=== PATIENT | male | born 1970 | race African-American/Black ===

== ENCOUNTER 2024-09-15 07:21 | Emergency (ER) | payer OTHER, SELFPAY ==
--- OUTSIDE RECORDS SUMMARY | 2024-09-15 07:23 | XMS_ITS | Clinical Summary ---
Author Organization [place] Address [address] [facility] [place] [address] [address] Team Providers Care Road Crew Member Name Role Phone No Ref-Primary, Physician Primary Care Provider Allergies No known active allergies Medications MOTRIN IB PO Active HYDROcodone-germaine taminophen (NORCO) 5-325 MG per tablet Take 1-2 tablets by mouth every 4 hours as needed for moderate to severe pain 15 tablet 0 03/30/2016 Active indomethacin (INDOCIN) 50 MG capsule Take 1 capsule (50 mg) by mouth 3 times daily as needed for moderate pain 15 capsule 07/27/2023 Active Immunizations Name Administration Dates Next Due TDAP Vaccine (Adacel) 12/11/2013 Social History Tobacco Use Types Packs/Day Years Used Date Smoking Tobacco: Never Alcohol Use Standard Drinks/Week Comments Yes 0 (1 standard drink = 0.6 oz pur e alcohol) 4-5 days per week 3-4 [facility] Adolescent Education Answer Date Record ed Getting School Help Needed Not on file 07/27 Sex and Gender Information Value Date Recorded Sex Assigned at Not on file Legal Sex Male 3:41 AM SVP OF DIGITAL Gender Identity Not on file Sexual Orientation Not on file Last Filed Vital Signs Vital Sign Reading Time Taken Comments Blood Pressure 148/106 07/27/2023 6:51 PM SVP OF DIGITAL Pulse 96 07/27/2023 6:51 PM SVP OF DIGITAL Temperature 37.7 C (99.9 F) 07/27/2023 4:59 PM SVP OF DIGITAL Respiratory Rate 16 07/27/2023 6:51 PM SVP OF DIGITAL Oxygen Saturation 98% 07/27/2023 6:51 PM SVP OF DIGITAL Inhaled Oxygen Concentration - - Weight 88.6 kg (195 lb 5.2 oz) 07/27/2023 4:59 P M SVP OF DIGITAL Height - - Body Mass Index - - Plan of Treatment Health Maintenance Due Date Last Done Comments ADVANCE CARE PLANNING 1970 ANNUAL REVIEW OF HM ORDERS 1969 CT COLONOGRAPHY 1969 FIT 1969 FLEX SIG 1969 sDNA (Cologuard) 1969 YEARLY PREVENTIVE VISIT 1972 COLONOSCOPY 1979 COLORECTAL CANCER SCREENING 1979 HIV SCREENING 1984 HEPATITIS C SCREENING 1987 HEPATITIS B IMMUNIZATION (1 of 3 - 19+ 3-dose series) 1988 LIPID 2009 Pneumococcal Vaccine: 50+ Years (1 of 1 - PCV) 2019 ZOSTER IMMUNIZATION (1 of 2) 2019 GLUCOSE 03/30/2019 03/30/2016 DTAP/TDAP/TD IMMUNIZATION (3 - Td or Tdap) 12/12/2023 12/11/2013, 05/07/2007 COVID-19 Vaccine (1 - 2023-2 5 season) 2024 INFLUENZA VACCINE (#1) 2024 PHQ-2 (once per calendar year) 2024 RSV VACCINE (1 - 1-dose 75+ series) 2044 HPV IMMUNIZATION Aged Out No longer e ligible based on patient's age to complete this topic MENINGITIS IMMUNIZATION Aged Out No l onger eligible based on patient's age to complete this topic RSV MONOCLONAL ANTIBODY Aged Out No l onger eligible based on patient's age to complete this topic Procedures Procedure Name Priority Date/Time Associated Diagnosis Comments COMPREHENSIVE METABOLIC PANEL STAT 03/30/2016 11:45 AM CDT from Last 3 Months or Most Recently Relevant to Health Maintenance Results * (ABNORMAL) Comprehensive metabolic panel (03/30/2016 11:45 AM CDT) Sodium 138 133 - 144 mmol/L [facility] Potassium 3.6 3.4 - 5.3 mmol/L [facility] Chloride 101 94 - 109 mmol/L [facility] Carbon Dioxide 30 20 - 32 mmol/L [facility] Anion Gap 7 3 - 14 mmol/L [facility] Glucose 98 70 - 99 mg/dL [facility] Urea Nitrogen 4(L) 7 - 30 mg/dL [facility] Creatinine 0.93 0.66 - 1.25 mg/dL [facility] GFR Estimate 87 >60 mL/min/1. 7m2 [facility] Comment:Non GFR Calc GFR Estimate If Black >90 GFR Calc >60 mL/min/1. 7m2 [facility] Calcium 8.9 8.5 - 10.1 mg/dL [facility] Bilirubin Total 0.9 0.2 - 1.3 mg/dL [facility] Albumin 4.0 3.4 - 5.0 g/dL [facility] Protein Total 7.5 6.8 - 8.8 g/dL [facility] Alkaline Phosphatase 55 40 - 150 U/L [facility] ALT 63 0 - 70 U/L [facility] AST 21 0 - 45 U/L [facility] Blood specimen (specimen) 03/30/2016 11:45 AM CDT 03/30/2016 12:17 PM CDT Mena Bauer PA-C LAB - BLOOD ORDERAB LES Final Result [facility] [address] [place] [address], [facility] [phone] from Last 3 Months or Most Recently Relevant to Health Maintenance Care Teams Road Crew Member Relationship Specialty Start Date End Date No Ref-Primary, Physician PCP - General 12/11/13
--- OUTSIDE RECORDS SUMMARY | 2024-09-15 07:23 | XMS_ITS | Referral Summary ---
Author Organization [place] Address [address] [place] [address] Care Team Providers Care Manufacturing Recruiter Name Role Phone No Ref-Primary, Physician Primary [...] e alcohol) 4-5 days per week 3-4 [facility] Adolescent Education Answer Date Record ed Getting School Help Needed Not on file 07/27 Sex and Gender Information Value Date Recorded Sex Assigned at Not on file Legal Sex Male 3:41 AM MANAGEMENT PSYCHOLOGIST Gender Identity Not on file Sexual Orientation Not on file Last Filed Vital Signs Vital Sign Reading Time Taken Comments Blood Pressure 148/106 07/27/2023 6:51 PM MANAGEMENT PSYCHOLOGIST Pulse 96 07/27/2023 6:51 PM MANAGEMENT PSYCHOLOGIST Temperature 37.7 C (99.9 F) 07/27/2023 4:59 PM MANAGEMENT PSYCHOLOGIST Respiratory Rate 16 07/27/2023 6:51 PM MANAGEMENT PSYCHOLOGIST Oxygen Saturation 98% 07/27/2023 6:51 PM MANAGEMENT PSYCHOLOGIST Inhaled Oxygen Concentration - - Weight 88.6 kg (195 lb 5.2 oz) 07/27/2023 4:59 P M MANAGEMENT PSYCHOLOGIST Height - - Body Mass Index - - Plan of Treatment Not on file Procedures Procedure Name Priority Date/Time Associated Diagnosis Comments COMPREHENSIVE METABOLIC PANEL STAT 03/30/2016 11:45 AM CDT from Last 3 Months or Most Recently Relevant to Health Maintenance Results * (ABNORMAL) Comprehensive metabolic panel (03/30/2016 11:45 AM CDT) Sodium 138 133 - 144 mmol/L [facility] Potassium 3.6 3.4 - 5.3 mmol/L [facility] Chloride 101 94 - 109 mmol/L [facility] Carbon Dioxide 30 20 - 32 mmol/L [facility] Anion Gap 7 3 - 14 mmol/L [facility] Glucose 98 70 - 99 mg/dL [facility] Urea Nitrogen 4(L) 7 - 30 mg/dL [facility] Creatinine 0.93 0.66 - 1.25 mg/dL [facility] GFR Estimate 87 >60 mL/min/1. 7m2 [facility] Comment:Non GFR Calc GFR Estimate If Black >90 GFR Calc >60 mL/min/1. 7m2 [facility] Calcium 8.9 8.5 - 10.1 mg/dL [facility] Bilirubin Total 0.9 0.2 - 1.3 mg/dL [facility] Albumin 4.0 3.4 - 5.0 g/dL [facility] Protein Total 7.5 6.8 - 8.8 g/dL [facility] Alkaline Phosphatase 55 40 - 150 U/L [facility] ALT 63 0 - 70 U/L [facility] AST 21 0 - 45 U/L [facility] Blood specimen (specimen) 03/30/2016 11:45 AM CDT 03/30/2016 12:17 PM CDT Mena Bauer PA-C LAB - BLOOD ORDERAB LES Final Result [facility] [address] [place] [address], [facility] [phone] from Last 3 Months or Most Recently Relevant to Health Maintenance Care Teams Manufacturing Recruiter Relationship Specialty Start Date End Date No Ref-Primary, Physician PCP - General 12/11/13
[2024-09-15 07:30] VITALS: BP 161/109; PULSE 104; RESP 20; TEMP 37.6; O2SAT 95; BMI 24.8
--- NOTE | 2024-09-15 08:07 | CRLHL7_ITS ---
For Patients: As a result of the Century Cures Act, medical imaging exams and procedure reports are released immediately into your electronic medical record. You may view this report before your referring provider. If you have questions, please contact your health care provider. INDICATION: Fever. Weakness. Cough. COVID. COMPARISON: None TECHNIQUE: PA and lateral views of the chest were acquired FINDINGS: TUBES AND LINES: None. HEART AND MEDIASTINUM: The heart size is normal. The mediastinal contour appears normal for patient age. LUNGS AND PLEURAL SPACES: Patchy airspace opacities on the right, likely inflammatory.The pleural spaces are unremarkable. OSSEOUS STRUCTURES: Age-appropriate appearance. No acute focal finding. IMPRESSION: Patchy airspace opacities on the right, likely inflammatory. No maryjane consolidation. Normal pleural spaces. Dictated by Timothy Kasper MD @ 09/15/2024 8:38:34 AM (Electronically Signed)
--- NOTE | 2024-09-15 08:09 | ED_ITS ---
HPI - General Adult General Date Seen: 09/15/24 Chief complaint: Weakness Stated complaint: tested positive for covid Time Seen by Provider: 09/15/24 08:02 History of Present Illness HPI narrative: Patient is a 54-year-old male, generally healthy, who has been sick for couple of days with headache, body aches, cough, fatigue and weakness. He did home COVID test which he says was positive on the 30, 2 days ago. He denies chest pain or shortness of breath, he has had some nausea but no vomiting. No diarrhea. He has not had any head appetite but has been trying to keep up with fluids. He feels like he is just peeing out everything he drinks in. He has had fevers up to 104 at home. He denies significant medical history. He does not smoke or drink excessively. Related Data Home Medications ?Medication ?Instructions ?Recorded ?Confirmed No Known Home Medications 09/15/24 09/15/24 Allergies Allergy/AdvReac Type Severity Reaction Status Date / Time No Known Drug Allergies Allergy Verified 09/15/24 07:29 Review of Systems Status of ROS: Reports: 10 or more systems reviewed and unremarkable except as noted in History and below [facility] Social History Smoking Status: Never smoker Do you use any of these nicotine containing products: None Second hand tobacco smoke exposure: Yes How often do you have a drink containing alcohol: never How often do you have six or more drinks on one occasion: Never AUDIT-C Alcohol total score: 0 Non-prescribed substance use: denies use service: No Exam Narrative: Exam Narrative: Vital signs reviewed In general, alert, nontoxic Head: Normocephalic, atraumatic. Eyes: Sclera clear. Pupils equal and reactive. ENT: Mucous membranes moist. Neck: Supple without adenopathy. Heart: Regular rate and rhythm without murmur. Lungs: Clear. No increased work of breathing, crackles or wheezes. Abdomen: Soft, nontender to palpation. Extremities: Well perfused, pulses intact. No significant edema. Neurologic: Alert, conversant. Speech fluent, face symmetric. Moves all extremities equally. Skin: Warm, dry well perfused. Affect: Normal. Const: Vital Signs, click to edit/add: Vital Signs - 24 hr 09/15/24 07:30 09/15/24 08:14 09/15/24 08:15 Temperature 99.6 F Pulse Rate 103 H 103 H Pulse Rate [Pulse Oximeter] 104 H Respiratory Rate 20 Blood Pressure Blood Pressure [Ri ght Upper Arm] 161/109 H Pulse Oximetry 95 96 93 Oxygen Delivery Me thod Room Air 09/15/24 08:33 09/15/24 08:35 Temperature 99.7 F H Pulse Rate 104 H Pulse Rate [Pulse Oximeter] Respiratory Rate Blood Pressure 144/92 H Blood Pressure [Ri ght Upper Arm] Pulse Oximetry 97 Oxygen Delivery Me thod Course Course ED Course: Symptoms are likely viral but will do some basic labs to rule out significant dehydration metabolic derangement evidence of more serious bacterial infection, chest x-ray to rule out pneumonia. I am going to do a viral swab as well to see whether he might have COVID and influenza given how poorly he feels. Will hydrate with normal saline, Toradol, Zofran for symptomatic relief. Evaluation here is notable for positive influenza a, COVID is actually negative here. His white blood cell count is mildly elevated at 12.2, labs are otherwise unremarkable. Lactate is 1.6. Chest x-ray by my review showed some haziness in the right lung, radiology really reads this as patchy airspace opacity likely inflammatory. A not entirely sure how to interpret that but to me it looks like it could be developing pneumonia so will treat with antibiotics for that. He is feeling significantly improved after therapy here. Diagnosis discussed. Expectant course discussed. He should be seen if not starting to improve by day 10, return at any time for worsening. Vital Signs Vital signs: Initial Vital Signs Temperature 99.6 F 09/15/24 07:30 Temperature Source Temporal Artery Scan 09/15/24 07:30 Pulse Rate 104 H 09/15/24 07:30 Pulse Rhythm Regular 09/15/24 07:30 Respiratory Rate 20 09/15/24 07:30 Blood Pressure 161/109 H 09/15/24 07:30 Blood Pressure Mean 126 H 09/15/24 07:30 Blood Pressure Position Semi-Fowlers 09/15/24 07:30 Pulse Oximetry 95 09/15/24 07:30 Oxygen Delivery Method Room Air 09/15/24 07:30 Vital Signs Temperature 99.6 F 09/15/24 07:30 Pulse Rate 104 H 09/15/24 07:30 Respiratory Rate 20 09/15/24 07:30 Blood Pressure 161/109 H 09/15/24 07:30 Pulse Oximetry 95 09/15/24 07:30 Oxygen Delivery Method Room Air 09/15/24 07:30 Temperature 99.7 F H 09/15/24 08:35 Pulse Rate 104 H 09/15/24 08:35 Respiratory Rate 20 09/15/24 07:30 Blood Pressure 144/92 H 09/15/24 08:33 Pulse Oximetry 97 09/15/24 08:35 Oxygen Delivery Method Room Air 09/15/24 07:30 Medications Administered Medications: Discontinued Medications Generic Name Dose Route Start Last Admin Trade Name Freq PRN Reason Stop Dose Admin Sodium Chloride 1,000 mls @ 1,000 mls/hr 09/15/24 08:15 09/15/24 09:42 0.9 % Sodium Chloride 1000 Ml IV 09/15/24 09:14 Infused .Q1H PAULA Infusion Ketorolac Tromethamine 15 mg 09/15/24 08:06 09/15/24 08:37 Ketorolac 15 Mg/Ml Inj IVP 09/15/24 08:07 15 mg ONCE ONE Administration Ondansetron HCl 4 mg 09/15/24 08:06 09/15/24 08:37 Ondansetron 2 Mg/Ml Inj IVP 09/15/24 08:07 4 mg ONCE ONE Administration Medical Decision Making Lab Data Lab results reviewed: Yes I reviewed the patient's lab results Labs: Lab Results 09/15/24 Range/Units 08:20 WBC 12.25 H (4.50-11.00) K/uL RBC 5.63 (4.30-5.90) m/uL Hgb 16.3 (13.5-17.5) gm/dL Hct 50.0 (37.0-53.0) % MCV 89 (80-100) fL MCH 29 (26-34) pg MCHC 33 (32-36) gm/dL RDW Coeff of Emmanuel 12.1 (11.5-15.5) % Plt Count 210 (140-440) K/uL Neut % (Auto) 82.7 H (42.0-72.0) % Lymph % (Auto) 8.1 L (20-44) % Kemper % (Auto) 8.9 (0.0-11.0) % Eos % (Auto) 0.0 (0.0-7.0) % Baso % (Auto) 0.1 (0.0-3.0) % Neut # (Auto) 10.10 H (1.7-7.0) K/uL Lymph # (Auto) 1.00 (0.90-2.90) K/uL Kemper # (Auto) 1.10 H (0.00-0.90) K/UL Eos # (Auto) 0.00 (0.00-0.50) K/uL Baso # (Auto) 0.00 (0.00-0.30) K/uL Abs Immat Gran (auto) 0.00 (0.00-0.30) K/uL Imm/Tot Granulo (auto) 0.2 % Sodium 133 L (135-149) mmol/L Potassium 4.3 (3.6-5.1) mmol/L Chloride 95 L (96-114) mmol/L Carbon Dioxide 28 (20-32) mmol/L Anion Gap 10 (7-15) mEq/L BUN 18 (7-30) mg/dL Creatinine 1.0 (0.5-1.5) mg/dL Estimated Creat Clear 88.90 Estimated GFR 89 ml/min Glucose 102 (60-115) mg/dL Lactate 1.6 (0.5-1.9) mmol/L Calcium 8.7 (8.4-10.6) mg/dL SARS-CoV-2 (PCR) Negative SARS-CoV-2 (Negative) Influenza Type A (PCR) POSITIVE PCR FLU A A (Negative) Influenza Type B (PCR) Negative PCR FLU B (Negative) RSV (PCR) Negative PCR RSV (Negative) Imaging Data Chest x-ray: Attestation: I have reviewed the pertinent imaging results. Radiologist's impression: Patient: ARGELIA KARIMI Facility: [facility] Site . Site : 1970 Study: XRay-Chest PORTABLE-09/15/2024 8:34:35 AM Ordering Physician: Tad Sanches Final Report: INDICATION: Fever. Weakness. Cough. COVID. COMPARISON: None TECHNIQUE: PA and lateral views of the chest were acquired FINDINGS: TUBES AND LINES: None. HEART AND MEDIASTINUM: The heart size is normal. The mediastinal contour appears normal for patient age. LUNGS AND PLEURAL SPACES: Patchy airspace opacities on the right, likely inflammatory.The pleural spaces are unremarkable. OSSEOUS STRUCTURES: Age-appropriate appearance. No acute focal finding. IMPRESSION: Patchy airspace opacities on the right, likely inflammatory. No maryjane consolidation. Normal pleural spaces. Dictated by Timothy Kasper MD @ 09/15/2024 8:38:34 AM Discharge Plan Discharge Clinical Impression: Influenza A, Pneumonia Patient Disposition: Home, Self-Care Condition: Improved Instructions: Influenza (ED), Community Acquired Pneumonia (ED) Additional Instructions: Ibuprofen 400 mg plus or minus Tylenol 1000 mg 3 times daily with food. Keep up with hydration. Take antibiotics as prescribed for developing pneumonia. Return at any time for severe symptoms, significant shortness of breath, uncontrolled vomiting, or other worsening. If you are not improving by day 10, you should be seen again. Prescriptions: No Action No Known Home Medications Follow Up/Referrals: Provider,Not a Local [Primary Care Provider] - Stand Alone Forms: [employer] Info Instructions
[2024-09-15 08:14] VITALS: PULSE 103; O2SAT 96
[2024-09-15 08:15] VITALS: PULSE 103; O2SAT 93
[2024-09-15 08:33] VITALS: BP 144/92
[2024-09-15 08:35] VITALS: PULSE 104; TEMP 37.6; O2SAT 97
[2024-09-15] MEDS: 0.9 % SODIUM CHLORIDE 1000 ml 1,000 ML IV (08:37)
[2024-09-15] MEDS: ONDANSETRON 2 MG/ML inj 4 MG IVP (08:37)
[2024-09-15] MEDS: KETOROLAC 15 MG/ML inj IVP (08:37)
[2024-09-15 08:48] LABS: Basophils Percent Auto 0.1 % (0.0-3.0); Hemoglobin* 16.3 gm/dL (13.5-17.5); Immature Granulocytes Pct Auto 0.2 %; Lymphocytes Percent Auto 8.1 % (20-44); Mean Corpuscular HGB Conc 33 gm/dL (32-36); Mean Corpuscular Hemoglobin 29 pg (26-34); Mean Corpuscular Volume 89 fL (80-100); Monocytes Percent Auto 8.9 % (0.0-11.0); Neutrophils Percent Auto 82.7 % (42.0-72.0); Platelet Count* 210 K/uL (140-440); RDW Coefficient of Variation % 12.1 % (11.5-15.5); Red Blood Count 5.63 m/uL (4.30-5.90); White Blood Count* 12.25 K/uL (4.50-11.00)
[2024-09-15 08:50] LABS: Lactate Sepsis w/Reflex* 1.6 mmol/L (0.5-1.9)
[2024-09-15 08:51] LABS: Slide Review Reflex No
--- OUTSIDE RECORDS SUMMARY | 2024-09-15 08:52 | XMS_ITS | Clinical Summary ---
Author Organization [place] Address [address] [place] [address] Care Team Providers Care Outside Plant Engineer Name Role Phone No Ref-Primary, Physician Primary [...] e alcohol) 4-5 days per week 3-4 [facility] Adolescent Education Answer Date Record ed Getting School Help Needed Not on file 07/27 Sex and Gender Information Value Date Recorded Sex Assigned at Not on file Legal Sex Male 3:41 AM AIRPORT ENGINEER Gender Identity Not on file Sexual Orientation Not on file Last Filed Vital Signs Vital Sign Reading Time Taken Comments Blood Pressure 148/106 07/27/2023 6:51 PM AIRPORT ENGINEER Pulse 96 07/27/2023 6:51 PM AIRPORT ENGINEER Temperature 37.7 C (99.9 F) 07/27/2023 4:59 PM AIRPORT ENGINEER Respiratory Rate 16 07/27/2023 6:51 PM AIRPORT ENGINEER Oxygen Saturation 98% 07/27/2023 6:51 PM AIRPORT ENGINEER Inhaled Oxygen Concentration - - Weight 88.6 kg (195 lb 5.2 oz) 07/27/2023 4:59 P M AIRPORT ENGINEER Height - - Body Mass Index - [...] CDT) Sodium 138 133 - 144 mmol/L [facility] Potassium 3.6 3.4 - 5.3 mmol/L [facility] Chloride 101 94 - 109 mmol/L [facility] Carbon Dioxide 30 20 - 32 mmol/L [facility] Anion Gap 7 3 - 14 mmol/L [facility] Glucose 98 70 - 99 mg/dL [facility] Urea Nitrogen 4(L) 7 - 30 mg/dL [facility] Creatinine 0.93 0.66 - 1.25 mg/dL [facility] GFR Estimate 87 >60 mL/min/1. 7m2 [facility] Comment:Non GFR Calc GFR Estimate If Black >90 GFR Calc >60 mL/min/1. 7m2 [facility] Calcium 8.9 8.5 - 10.1 mg/dL [facility] Bilirubin Total 0.9 0.2 - 1.3 mg/dL [facility] Albumin 4.0 3.4 - 5.0 g/dL [facility] Protein Total 7.5 6.8 - 8.8 g/dL [facility] Alkaline Phosphatase 55 40 - 150 U/L [facility] ALT 63 0 - 70 U/L [facility] AST 21 0 - 45 U/L [facility] Blood specimen (specimen) 03/30/2016 11:45 AM CDT 03/30/2016 12:17 PM CDT Mena Bauer PA-C LAB - BLOOD ORDERAB LES Final Result [facility] [address] [place] [address], [facility] [phone] from Last 3 Months or Most Recently Relevant to Health Maintenance Care Teams Outside Plant Engineer Relationship Specialty Start Date End Date No Ref-Primary, Physician PCP - General 12/11/13
--- OUTSIDE RECORDS SUMMARY | 2024-09-15 08:52 | XMS_ITS | Referral Summary ---
Author Organization [place] Address [address] [facility] [place] [address] Care Team Providers Care Education Reporter Name Role Phone No Ref-Primary, Physician Primary [...] e alcohol) 4-5 days per week 3-4 [facility] Adolescent Education Answer Date Record ed Getting School Help Needed Not on file 07/27 Sex and Gender Information Value Date Recorded Sex Assigned at Not on file Legal Sex Male 3:41 AM BAG MAKING MACHINE TENDER Gender Identity Not on file Sexual Orientation Not on file Last Filed Vital Signs Vital Sign Reading Time Taken Comments Blood Pressure 148/106 07/27/2023 6:51 PM BAG MAKING MACHINE TENDER Pulse 96 07/27/2023 6:51 PM BAG MAKING MACHINE TENDER Temperature 37.7 C (99.9 F) 07/27/2023 4:59 PM BAG MAKING MACHINE TENDER Respiratory Rate 16 07/27/2023 6:51 PM BAG MAKING MACHINE TENDER Oxygen Saturation 98% 07/27/2023 6:51 PM BAG MAKING MACHINE TENDER Inhaled Oxygen Concentration - - Weight 88.6 kg (195 lb 5.2 oz) 07/27/2023 4:59 P M BAG MAKING MACHINE TENDER Height - - Body Mass Index - - Plan of Treatment Not on file Procedures Procedure Name Priority Date/Time Associated Diagnosis Comments COMPREHENSIVE METABOLIC PANEL STAT 03/30/2016 11:45 AM CDT from Last 3 Months or Most Recently Relevant to Health Maintenance Results * (ABNORMAL) Comprehensive metabolic panel (03/30/2016 11:45 AM CDT) Sodium 138 133 - 144 mmol/L [facility] Potassium 3.6 3.4 - 5.3 mmol/L [facility] Chloride 101 94 - 109 mmol/L [facility] Carbon Dioxide 30 20 - 32 mmol/L [facility] Anion Gap 7 3 - 14 mmol/L [facility] Glucose 98 70 - 99 mg/dL [facility] Urea Nitrogen 4(L) 7 - 30 mg/dL [facility] Creatinine 0.93 0.66 - 1.25 mg/dL [facility] GFR Estimate 87 >60 mL/min/1. 7m2 [facility] Comment:Non GFR Calc GFR Estimate If Black >90 GFR Calc >60 mL/min/1. 7m2 [facility] Calcium 8.9 8.5 - 10.1 mg/dL [facility] Bilirubin Total 0.9 0.2 - 1.3 mg/dL [facility] Albumin 4.0 3.4 - 5.0 g/dL [facility] Protein Total 7.5 6.8 - 8.8 g/dL [facility] Alkaline Phosphatase 55 40 - 150 U/L [facility] ALT 63 0 - 70 U/L [facility] AST 21 0 - 45 U/L [facility] Blood specimen (specimen) 03/30/2016 11:45 AM CDT 03/30/2016 12:17 PM CDT Mena Bauer PA-C LAB - BLOOD ORDERAB LES Final Result [facility] [address] [place] [address], [facility] [phone] from Last 3 Months or Most Recently Relevant to Health Maintenance Care Teams Education Reporter Relationship Specialty Start Date End Date No Ref-Primary, Physician PCP - General 12/11/13
[2024-09-15 09:15] LABS: Chloride* 95 mmol/L (96-114); Potassium* 4.3 mmol/L (3.6-5.1); Sodium* 133 mmol/L (135-149)
[2024-09-15 09:17] LABS: Estimated Glomerular Filt Rate 89 ml/min
[2024-09-15 09:18] LABS: Anion Gap 10 mEq/L (7-15); Blood Urea Nitrogen* 18 mg/dL (7-30); Calcium* 8.7 mg/dL (8.4-10.6); Carbon Dioxide* 28 mmol/L (20-32); Glucose* 102 mg/dL (60-115)
[2024-09-15 09:38] LABS: PCR FLU A POSITIVE PCR FLU A (Negative); PCR FLU B Negative PCR FLU B (Negative); PCR RSV Negative PCR RSV (Negative); SARS PCR* Negative SARS-CoV-2 (Negative)
== END 2024-09-15 10:19 | disposition home or self-care (01) ==
PROVIDERS: Emergency Provider Emergency Medicine
DX: J10.00 Influenza due to other identified influenza virus with unspecified type of pneumonia (principal)
CPT/HCPCS: 36415; 71045; 80048; 83605; 85025; 87631; 96361; 96374; 96375; 99284; J1885; J2405; J7030

== ENCOUNTER 2025-03-19 11:34 | Emergency (ER) | payer OTHER, SELFPAY ==
[2025-03-19] VITALS (11 sets, daily range): BP systolic 141–151; BP diastolic 94–101; PULSE 65–81; RESP 15–20; TEMP 35.5; O2SAT 97–100; BMI 25.8
--- OUTSIDE RECORDS SUMMARY | 2025-03-19 11:36 | XMS_ITS | Clinical Summary ---
Author Organization [facility] Address [address] [facility] [place] [address] Care Team Providers Care English Division Chair Name Role Phone No Ref-Primary, Physician Primary [...] moderate pain 15 capsule 07/27/2023 Active Immunizations Immunization Administration Dates Next Due TDAP Vaccine (Adacel) 12/11/2013 Social History Tobacco Use Types Packs/Day Years Used Date Smoking Tobacco: Never Alcohol Use Standard Drinks/Week Comments Yes 0 (1 standard drink = 0.6 oz pur e alcohol) 4-5 days per week 3-4 banner Adolescent Education Answer Date Record ed Getting School Help Needed Not on file 07/27 Sex and Gender Information Value Date Recorded Sex Assigned at Not on file Legal Sex Male 3:41 AM [employer] Gender Identity Not on file Sexual Orientation Not on file Last Filed Vital Signs Vital Sign Reading Time Taken Comments Blood Pressure 148/106 07/27/2023 6:51 PM [employer] Pulse 96 07/27/2023 6:51 PM [employer] Temperature 37.7 C (99.9 F) 07/27/2023 4:59 PM [employer] Respiratory Rate 16 07/27/2023 6:51 PM [employer] Oxygen Saturation 98% 07/27/2023 6:51 PM [employer] Inhaled Oxygen Concentration - - Weight 88.6 kg (195 lb 5.2 oz) 07/27/2023 4:59 P M [employer] Height - - Body Mass Index - - Plan of Treatment Health Maintenance Due Date Last Done Comments ADVANCE CARE PLANNING 1969 ANNUAL REVIEW OF HM ORDERS 1969 CT COLONOGRAPHY 1969 FIT 1969 FLEX SIG 1969 sDNA (Cologuard) 1969 YEARLY PREVENTIVE VISIT 1972 COLONOSCOPY 1979 COLORECTAL CANCER SCREENING 1979 HIV SCREENING 1984 HEPATITIS C SCREENING 1987 HEPATITIS B VACCINE (1 of 3 - 19+ 3-dose series) 1988 LIPID 2009 PNEUMOCOCCAL VACCINE 50+ YEARS (1 of 1 - PCV) 2019 ZOSTER VACCINE (1 of 2) 2019 DIABETES SCREENING 03/30/2019 03/30/2016 DTAP/TDAP/TD VACCINE (3 - Td or Tdap) 12/12/2023 12/11/2013, 05/07/2007 COVID-19 VACCINE (1 - 2023-2 5 season) 2024 PHQ-2 (once per calendar year) 2024 INFLUENZA VACCINE (#1) 2025 HPV VACCINE (No Doses Required) Completed MENINGITIS VACCINE Aged Out No longer eligible based on patient's age to complete this topic Procedures Procedure Name Priority Date/Time Associated Diagnosis Comments COMPREHENSIVE METABOLIC PANEL STAT 03/30/2016 11:45 AM CDT from Last 3 Months or Most Recently Relevant to Health Maintenance Results * (ABNORMAL) Comprehensive metabolic panel (03/30/2016 11:45 AM CDT) Sodium 138 133 - 144 mmol/L [facility] Potassium 3.6 3.4 - 5.3 mmol/L [facility] Chloride 101 94 - 109 mmol/L [facility] Carbon Dioxide 30 20 - 32 mmol/L [facility] Anion Gap 7 3 - 14 mmol/L [facility] Glucose 98 70 - 99 mg/dL [facility] Urea Nitrogen 4(L) 7 - 30 mg/dL [facility] Creatinine 0.93 0.66 - 1.25 mg/dL [facility] GFR Estimate 87 >60 mL/min/1. 7m2 [facility] Comment:Non GFR Calc GFR Estimate If Black >90 GFR Calc >60 mL/min/1. 7m2 [facility] Calcium 8.9 8.5 - 10.1 mg/dL [facility] Bilirubin Total 0.9 0.2 - 1.3 mg/dL [facility] Albumin 4.0 3.4 - 5.0 g/dL [facility] Protein Total 7.5 6.8 - 8.8 g/dL [facility] Alkaline Phosphatase 55 40 - 150 U/L [facility] ALT 63 0 - 70 U/L [facility] AST 21 0 - 45 U/L [facility] Blood specimen (specimen) 03/30/2016 11:45 AM CDT 03/30/2016 12:17 PM CDT Mena Bauer PA-C LAB - BLOOD ORDERAB LES Final Result [facility] [address] [place] [address], [facility] [phone] from Last 3 Months or Most Recently Relevant to Health Maintenance Care Teams English Division Chair Relationship Specialty Start Date End Date No Ref-Primary, Physician PCP - General 12/11/13
--- OUTSIDE RECORDS SUMMARY | 2025-03-19 11:36 | XMS_ITS | Patient Health Record ---
Author Organization [facility] Address [address] [place] [address] Care Team Providers Care Financial Center Manager Name Role Phone Warren Mendez Primary Care Provider WALLACE Yeager Unavailable [phone] Reason For Referral No Information Medications Medication SIG (Take, Route, Frequency, Duration) Notes Start Date End Date Status Fluticasone Propionate 50 MCG/ACT Suspension 2 sprays Nasally Once a day; Duration: 30 day(s) 04/09/2014 Active Problems Problem Type SNOMED Code ICD Code Onset Dates Problem Status W/U Status Risk Notes Problem Chronic rhinitis (72688089) Chronic rhinitis (472.0) Active confirmed Plan Of Treatment No Information Insurance Providers Payer Name Payer Address Payer Phone Subscriber Number Group Number Insured Name Patient Relationship to Insured Coverage Start Date Coverage End Date [employer] [place] [address] [address] [place] [address] [id number] Ryan Junior Self - patient is the insured [place] [employer] [address] [address] [place] [address] [id number] Ryan Junior Self - patient is the insured
[2025-03-19 12:18] LABS: Hematocrit 48.8 % (37.0-53.0); Hemoglobin* 15.8 gm/dL (13.5-17.5); Immature Granulocytes Abs Auto 0.00 K/uL (0.00-0.30); Immature Granulocytes Pct Auto 0.0 %; Lymphocytes Absolute Auto 1.68 K/uL (0.90-2.90); Mean Corpuscular HGB Conc 32 gm/dL (32-36); Mean Corpuscular Hemoglobin 29 pg (26-34); Mean Corpuscular Volume 90 fL (80-100); RDW Coefficient of Variation % 11.9 % (11.5-15.5); Red Blood Count 5.43 m/uL (4.30-5.90); White Blood Count* 6.61 K/uL (4.50-11.00)
[2025-03-19 12:26] LABS: Slide Review Reflex No
[2025-03-19 12:32] LABS: Chloride* 97 mmol/L (96-114); Potassium* 4.5 mmol/L (3.6-5.1); Sodium* 134 mmol/L (135-149)
[2025-03-19 12:35] LABS: Anion Gap 6 mEq/L (7-15); Blood Urea Nitrogen* 7 mg/dL (7-30); Calcium* 9.9 mg/dL (8.4-10.6); Carbon Dioxide* 31 mmol/L (20-32); Creatinine* 1.0 mg/dL (0.5-1.5); Est. Creatinine Clearance* 85.17; Estimated Glomerular Filt Rate 88 ml/min; Glucose* 115 mg/dL (60-115)
[2025-03-19 12:47] LABS: Troponin, Point-of-Care* 0.00 ng/ml (0.01-0.04)
--- NOTE | 2025-03-19 13:07 | CRLHL7_ITS ---
For Patients: As a result of the Century Cures Act, medical imaging exams and procedure reports are released immediately into your electronic medical record. You may view this report before your referring provider. If you have questions, please contact your health care provider. INDICATION: Chest pain. TECHNIQUE: Chest 2 views. COMPARISON: Chest radiograph 09/15/2024 FINDINGS: Cardiovascular and mediastinum: Borderline cardiomegaly is stable. Unremarkable mediastinum. Lungs and pleural spaces: Lungs are clear. No pneumothorax or pleural effusion. Bones and soft tissues: No significant findings. IMPRESSION: No acute findings. Dictated by Yazmin Thompson MD @ 03/19/2025 2:12:35 PM (Electronically Signed)
--- NOTE | 2025-03-19 13:29 | CRLHL7_ITS ---
For Patients: As a result of the Century Cures Act, medical imaging exams and procedure reports are released immediately into your electronic medical record. You may view this report before your referring provider. If you have questions, please contact your health care provider. INDICATION: Constipation. COMPARISON: None available. TECHNIQUE: AP upright and supine views of the abdomen and pelvis (3 images). FINDINGS: Thickening of the valvulae conniventes involving a short segment of nondilated small bowel in the left mid abdomen as demonstrated on the AP supine abdominal radiograph consistent with nonspecific submucosal edema. Differential diagnostic considerations include intramural hemorrhage. Consider CT for further evaluation. No significant colonic fecal loading. No significant incidental calcifications. The visualized skeleton demonstrates no significant incidental findings. IMPRESSION: 1. Thickening of the valvulae conniventes involving a short segment of nondilated small bowel in the left mid abdomen as demonstrated on the AP supine abdominal radiograph consistent with nonspecific submucosal edema. Differential diagnostic considerations include intramural hemorrhage. Consider CT for further evaluation. 2. No significant colonic fecal loading. Dictated by Peter Osullivan MD @ 03/19/2025 2:23:49 PM (Electronically Signed)
--- NOTE | 2025-03-19 13:33 | ED.GENADULT ---
HPI - General Adult General Chief complaint: Chest Pain Stated complaint: chest pain. lower pain Time Seen by Provider: 03/19/25 13:23 Source: patient Mode of arrival: ambulatory Limitations: no limitations History of Present Illness HPI narrative: 55-year-old male with no primary care provider, presents today with multiple concerns. Patient states that he had significant constipation which require him to take [id number] laxatives. He states he did not have a bowel movement for over a week and then after taking laxatives he finally had bowel movement. He does not have any abdominal pain. He states that he vomited x1 yesterday, small amount of bile. No fevers or chills. He also is concerned about right-sided flank pain that he had about 3 weeks ago. It was sharp in nature and lasted a half of a day. Since then that pain has gone away but he feels a very mild soreness there still. He denies any blood in his urine or changes in color of his urine. He denies dysuria, increased frequency or urgency. He is also concerned because he woke up this morning with some central chest pain which he has had on and off for several weeks. It is a dull pain, not associated with physical activity, lasts a few seconds and goes away. Lastly, he is concerned that his blood pressure has been elevated at home. He states that 1 day the top number was 205 and the lowest it has been at home was 151. He is concerned because he has a sister with hypertension and father from congestive heart failure. Patient does not take any medications and denies any diagnosed medical problems in the past. 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 service: No Exam Const: Vital Signs, click to edit/add: Vital Signs - 24 hr 03/19/25 11:40 03/19/25 13:16 03/19/25 13:17 Temperature 96 F L Pulse Rate 65 70 Pulse Rate [Pulse Oximeter] 81 Respiratory Rate 20 17 15 Blood Pressure 141/99 H Blood Pressure [Ri ght Upper Arm] 151/101 H Pulse Oximetry 100 98 98 Oxygen Delivery Me thod Room Air Course Course ED Course: EKG, read by me, shows normal sinus rhythm with a pulse of 67. Normal QRS, QTC and MI intervals. Blood work including a CBC, chemistries and troponin, is unremarkable. Chest x-ray, read by me, does not show any acute pathology. Abdominal x-ray, read by me, shows a nonspecific gas pattern with some stool present. However, radiologic over-read on the abdominal x-ray was concerning for Thickening of the valvulae conniventes involving a short segment of nondilated small bowel. I discussed this with Dr. Osullivan, radiology, who recommended an evaluation of the patient before further imaging. He also mention that this could be meaningless he in the appropriate clinical setting. Given the patient's not having any left-sided abdominal pain, is not toxic, does not appear ill, is hemodynamically stable and has normal blood work I do not think that further imaging is needed at this time to rodriguez this down. ? UA showed 1+ bilirubin, mucous trace protein. Unclear significance of this. Vital Signs Vital signs: Initial Vital Signs Temperature 96 F L 03/19/25 11:40 Temperature Source Temporal Artery Scan 03/19/25 11:40 Pulse Rate 81 03/19/25 11:40 Respiratory Rate 20 03/19/25 11:40 Blood Pressure 151/101 H 03/19/25 11:40 Blood Pressure Mean 117 H 03/19/25 11:40 Blood Pressure Position Sitting 03/19/25 11:40 Pulse Oximetry 100 03/19/25 11:40 Oxygen Delivery Method Room Air 03/19/25 11:40 Vital Signs Temperature 96 F L 03/19/25 11:40 Pulse Rate 81 03/19/25 11:40 Respiratory Rate 20 03/19/25 11:40 Blood Pressure 151/101 H 03/19/25 11:40 Pulse Oximetry 100 03/19/25 11:40 Oxygen Delivery Method Room Air 03/19/25 11:40 Temperature 96 F L 03/19/25 11:40 Pulse Rate 70 03/19/25 13:17 Respiratory Rate 15 03/19/25 13:17 Blood Pressure 141/99 H 03/19/25 13:16 Pulse Oximetry 98 03/19/25 13:17 Oxygen Delivery Method Room Air 03/19/25 11:40 Medical Decision Making MDM Narrative Medical decision making narrative: 55-year-old male with multiple concerns today. Workup unremarkable. Discussed with the patient he should establish care with primary care provide, recommend colonoscopy and daily MiraLax if needed for constipation. Patient was in agreement and had no other questions. Lab Data Labs: Lab Results 03/19/25 03/19/25 03/19/25 Range/Units 12:03 12:07 13:20 WBC 6.61 (4.50-11.00) K/uL RBC 5.43 (4.30-5.90) m/uL Hgb 15.8 (13.5-17.5) gm/dL Hct 48.8 (37.0-53.0) % MCV 90 (80-100) fL MCH 29 (26-34) pg MCHC 32 (32-36) gm/dL RDW Coeff of Emmanuel 11.9 (11.5-15.5) % Plt Count 312 (140-440) K/uL Neut % (Auto) 68.8 (42.0-72.0) % Lymph % (Auto) 25.4 (20-44) % [place] % (Auto) 5.0 (0.0-11.0) % Eos % (Auto) 0.6 (0.0-7.0) % Baso % (Auto) 0.2 (0.0-3.0) % Neut # (Auto) 4.55 (1.7-7.0) K/uL Lymph # (Auto) 1.68 (0.90-2.90) K/uL [place] # (Auto) 0.30 (0.00-0.90) K/UL Eos # (Auto) 0.04 (0.00-0.50) K/uL Baso # (Auto) 0.01 (0.00-0.30) K/uL Abs Immat Gran (auto) 0.00 (0.00-0.30) K/uL Imm/Tot Granulo (auto) 0.0 % Sodium 134 L (135-149) mmol/L Potassium 4.5 (3.6-5.1) mmol/L Chloride 97 (96-114) mmol/L Carbon Dioxide 31 (20-32) mmol/L Anion Gap 6 L (7-15) mEq/L BUN 7 (7-30) mg/dL Creatinine 1.0 (0.5-1.5) mg/dL Estimated Creat Clear 85.17 Estimated GFR 88 ml/min Glucose 115 (60-115) mg/dL Calcium 9.9 (8.4-10.6) mg/dL Total Bilirubin 1.1 (0.1-1.5) mg/dL Direct Bilirubin 0.3 (0.0-0.5) mg/dL AST 30 (12-35) U/L ALT 27 (4-50) U/L Alkaline Phosphatase 56 (40-150) U/L Total Protein 7.3 (6.0-8.3) g/dL Albumin 4.5 (3.3-5.0) g/dL Urine Color Isabelle A (Yellow) Urine Appearance Slightly Cloudy A (Clear) Urine pH 5.5 (5.0-8.5) Ur Specific [place] 1.025 (1.000-1.030) Urine Protein Trace A (Negative) Urine Glucose (UA) Negative (Negative) Urine Ketones Negative (Negative) Urine Blood Negative (Negative) Urine Nitrite Negative (Negative) Urine Bilirubin 1+ A (Negative) Urine Urobilinogen 0.2 (0.2-1.0) Ur Leukocyte Esterase Negative (Negative) Urine RBC 0-2 (0-2) Urine WBC 0-2 (0-5) Ur Squamous Epith Cells Few (None-Few) Urine Bacteria Few A (None) Fine Granular Casts Few A (None) Urine Mucus Moderate A (None) POC Troponin I 0.00 L (0.01-0.04) ng/ml Imaging Data Abdominal x-ray: Attestation: I have reviewed the pertinent imaging results. Radiologist's impression: TECHNIQUE: AP upright and supine views of the abdomen and pelvis (3 images). FINDINGS: Thickening of the valvulae conniventes involving a short segment of nondilated small bowel in the left mid abdomen as demonstrated on the AP supine abdominal radiograph consistent with nonspecific submucosal edema. Differential diagnostic considerations include intramural hemorrhage. Consider CT for further evaluation. No significant colonic fecal loading. No significant incidental calcifications. The visualized skeleton demonstrates no significant incidental findings. IMPRESSION: 1. Thickening of the valvulae conniventes involving a short segment of nondilated small bowel in the left mid abdomen as demonstrated on the AP supine abdominal radiograph consistent with nonspecific submucosal edema. Differential diagnostic considerations include intramural hemorrhage. Consider CT for further evaluation. 2. No significant colonic fecal loading. Chest x-ray: Attestation: I have reviewed the pertinent imaging results. Radiologist's impression: TECHNIQUE: Chest 2 views. COMPARISON: Chest radiograph 09/15/2024 FINDINGS: Cardiovascular and mediastinum: Borderline cardiomegaly is stable. Unremarkable mediastinum. Lungs and pleural spaces: Lungs are clear. No pneumothorax or pleural effusion. Bones and soft tissues: No significant findings. IMPRESSION: No acute findings. Discharge Plan Discharge Clinical Impression: Flank pain, Constipation, Chest pain Patient Disposition: Home, Self-Care Condition: Stable Additional Instructions: Recommend you establish care with a primary care provider and proceed with a colonoscopy. If you continue to experience constipation I would recommend a daily scoop of MiraLax to help with that. This can be purchased [id number]. Prescriptions: No Action No Known Home Medications Follow Up/Referrals: Provider,Not a Local [Primary Care Provider, Family Practice] Stand Alone Forms: [employer] Info Instructions
[2025-03-19 14:00] LABS: Appearance Urine Slightly Cloudy (Clear)
[2025-03-19 14:21] LABS: Albumin* 4.5 g/dL (3.3-5.0)
[2025-03-19 14:24] LABS: Alanine Aminotransferase* 27 U/L (4-50); Alkaline Phosphatase* 56 U/L (40-150); Aspartate Amino Transferase* 30 U/L (12-35); Bilirubin Direct* 0.3 mg/dL (0.0-0.5); Bilirubin Total* 1.1 mg/dL (0.1-1.5); Total Protein* 7.3 g/dL (6.0-8.3)
== END 2025-03-19 14:45 | disposition home or self-care (01) ==
PROVIDERS: Emergency Provider Family Medicine
DX: R10.9 Unspecified abdominal pain (principal); K59.00 Constipation, unspecified; R07.9 Chest pain, unspecified
CPT/HCPCS: 36415; 71046; 74019; 80048; 80076; 81001; 84484; 85025; 87086; 93005; 99284; 99285